=== PATIENT | male | born 1930 | race Caucasian/White ===

== ENCOUNTER 2017-05-11 16:33 | Emergency (ER) | payer OTHER, MEDICARE ==
[~2017-05-11] VITALS: Ht 185.4 cm; Wt 88.0 kg
--- NOTE | ~2017-05-11 | EKG ---
[address] [place] [address] ELECTROCARDIOGRAM REPORT Name: KELLI MACHADO [facility] ANNIST[facility] [id number] Admission: 05/11/17 Attend Phys: Discharge: 05/11/17 Date of : [birth year] Report #: [id number] THIS REPORT FOR: //name// [facility] ED Test Date: 2017-05-11 Test Time: 16:50:37 Pat Name: KELLI MACHADO Department: Room: Gender: M [employer]: [facility] : 1930 Requested By: Sam Drake Order Number: [id number] MD: Manuel Hopper Measurements Intervals Blanch Rate: 75 P: GA: QRS: -56 QRSD: 105 T: 83 QT: 399 QTc: 446 Interpretive Statements Atrial fibrillation Abnormal R-wave progression, late transition Left anterior hemiblock Compared to ECG 05/19/2007 15:22:19 No significant change was found Electronically Signed On 05-12-2017 8:59:55 [employer] by Manuel Hopper [email or web address] <ELECTRONICALLY SIGNED> By: Manuel Hopper MD, [facility] 05/12/17 [id number] Manuel Hopper MD, [facility] /EPI
[2017-05-11 17:04] LABS: ABSOLUTE NEUTROPHILS 8.4 thou/uL (1.4-8.2); BASOPHILS 0.9 % (0.0-2.0); EOSINOPHILS 0.2 % (0.0-3.0); HEMATOCRIT 38.6 % (42.0-52.0); HEMOGLOBIN 12.9 gm/dL (14.0-18.0); LYMPHOCYTES 16.5 % (24.0-44.0); MCH 35.1 pg (26.0-34.0); MCHC 33.3 g/dL (28.0-37.0); MCV 105.3 fL (80.0-100.0); MONOCYTES 4.8 % (1.0-8.0); PLATELET COUNT 207 thou/uL (150-400); POLYS 77.6 % (36.0-66.0); RBC 3.67 mil/uL (4.50-6.00); RDW 18.4 % (10.5-14.5); WBC 10.9 thou/uL (4.0-11.0)
[2017-05-11] MEDS ORDERED: LISINOPRIL5 MG PO (17:04)
[2017-05-11] MEDS ORDERED: XARELTO15 MG PO (17:05)
[2017-05-11] MEDS ORDERED: NAMENDA 10 MG T10 MG PO (17:05)
[2017-05-11] MEDS ORDERED: SYNTHROID25 MCG PO (17:05)
[2017-05-11] MEDS ORDERED: PRAVASTATIN SOD20 MG PO (17:06)
[2017-05-11] MEDS ORDERED: SYMBICORT160 MCG/4. INH (17:06)
[2017-05-11] MEDS ORDERED: WELLBUTRIN SR150 M1 PO (17:06)
[2017-05-11] MEDS ORDERED: TYLENOL EXTRA500 MG PO (17:07)
[2017-05-11] MEDS ORDERED: ALBUTEROL2.5 MG/31 INH (17:07)
[2017-05-11] MEDS ORDERED: SAM-E200 MG PO (17:07)
[2017-05-11 17:13] LABS: ANION GAP 10 mmol/L (7-16); BUN 51 mg/dL (7-18); CALCIUM 9.3 mg/dL (8.5-10.1); CHLORIDE 99 mmol/L (98-107); CO2 25 mmol/L (21-32); GLUCOSE 121 mg/dL (74-106); SODIUM 134 mmol/L (136-145)
[2017-05-11 17:21] LABS: ALBUMIN 3.5 g/dL (3.4-5.0); SGOT 28 U/L (15-37); SGPT 33 U/L (30-65); TOTAL BILIRUBIN 0.6 mg/dL (<0.1-1.0); TOTAL PROTEIN 6.4 g/dL (6.4-8.2); TROPONIN-I < 0.04 ng/mL (<0.06)
== END 2017-05-11 18:38 | disposition home or self-care (01) ==
LOC: ER 16:33
PROVIDERS: Physician Assistant
DX: I48.91 Unspecified atrial fibrillation (principal); R00.1 Bradycardia, unspecified